=== PATIENT | male | born 1945 | race Caucasian/White ===

== ENCOUNTER 2016-07-09 12:17 | Emergency (ER) | payer MEDICARE ==
--- NOTE | 2016-07-09 12:30 | ER Document Report ---
ED Medical Screen (RME) - General Chief Complaint: Testicular Pain Stated Complaint: TESTICULAR PAIN/SWELLING Time seen by provider: 12:28 Mode of Arrival: Wheelchair Information source: Patient Notes: 70 yo male testicular pain for 2-3 days with swelling to the right scrotum.. TRAVEL OUTSIDE OF THE [place] IN LAST 30 DAYS: No - HPI Onset: Other - 3 days Onset/Duration: Gradual Quality of pain: Pressure Severity: Mild Pain Level: 2 Associated Symptoms: Other - testicular pain Exacerbated by: Sitting, Movement Relieved by: Denies Similar symptoms previously: Yes Recently seen / treated by doctor: No - Related Data Smoking: Non-smoker Frequency of alcohol use: None Drug Abuse: None Allergies/Adverse Reactions: Tetanus Vaccines and Toxoid [Tetanus] Allergy (Unknown, Verified 02/26/12 10:05) Past Medical History - Past Medical History Cardiac Medical History: Reports: Hx Hypertension - medicaitons Denies: Hx Heart Attack Pulmonary Medical History: Denies: Hx Asthma Neurological Medical History: Denies: Hx Cerebrovascular Accident, Hx Seizures GI Medical History: Reports: Hx Ulcer - scar tissue formd after surg. Denies: Hx Hepatitis, Hx Hiatal Hernia Infectious Medical History: Denies: Hx Hepatitis Past Surgical History: Denies: Hx Open Heart Surgery, Hx Pacemaker Physical Exam - Vital signs Vitals: Temp Pulse Resp BP Pulse Ox 97.8 F 121 H 20 129/74 H 97 07/09/16 12:24 07/09/16 12:24 07/09/16 12:24 07/09/16 12:24 07/09/16 12:24 Course - Vital Signs Vital signs: Temp Pulse Resp BP Pulse Ox 97.8 F 121 H 20 129/74 H 97 07/09/16 12:24 07/09/16 12:24 07/09/16 12:24 07/09/16 12:24 07/09/16 12:24
[2016-07-09] MEDS ORDERED: OXYCODONE-ACETAMINOPHEN 5-325 MG TABLET PO ONE (12:31)
[2016-07-09] MEDS ORDERED: ONDANSETRON HCL INJ/PF 4 MG/2 ML SDV IV ONE (12:54)
[2016-07-09] MEDS ORDERED: NORMAL SALINE 1000 ML 1,000 ML IV ONE (12:54)
[2016-07-09] MEDS ORDERED: MORPHINE SULFATE 10 MG/ML INJ IV ONE (12:54)
[2016-07-09 14:02] LABS: ABSOLUTE LYMPHOCYTES (AUTO) 1.1 10^3/uL (0.5-4.7); BASOPHILS % (AUTO) 0.4 % (0-2); EOSINOPHILS % (AUTO) 0.4 % (0-6); HEMATOCRIT 41.6 % (37.9-51.0); HEMOGLOBIN 14.1 g/dL (13.5-17.0); HGB HCT DIFFERENCE 0.7; LYMPHOCYTES % (AUTO) 10.8 % (13-45); MEAN CORPUSCULAR HEMOGLOBIN 30.6 pg (27.0-33.4); MEAN CORPUSCULAR VOLUME 90 fl (80-97); MONOCYTES % (AUTO) 9.7 % (3-13); RED BLOOD COUNT 4.62 10^6/uL (4.35-5.55); SEGMENTED NEUTROPHILS % (AUTO) 78.7 % (42-78); WHITE BLOOD COUNT 10.2 10^3/uL (4.0-10.5)
[2016-07-09 14:07] LABS: APPEARANCE,URINE CLOUDY; BILIRUBIN,URINE NEGATIVE (NEGATIVE); GLUCOSE, URINE NEGATIVE (NEGATIVE); KETONES,URINE NEGATIVE (NEGATIVE); LEUKOCYTE ESTERASE,URINE LARGE (NEGATIVE); NITRITE,URINE POSITIVE (NEGATIVE); PROTEIN,URINE 30 mg/dL (NEGATIVE); URINE SPECIFIC GRAVITY 1.021
[2016-07-09] MEDS ORDERED: DOXYCYCLINE HYCLATE INJ 100 MG VIAL IV ONE (14:08)
[2016-07-09 14:22] LABS: ANION GAP 12 (5-19); BLOOD UREA NITROGEN 23 mg/dL (7-20); CARBON DIOXIDE 26 mmol/L (22-30); CHLORIDE 102 mmol/L (98-107); CREATININE RESULT 1.16 mg/dL (0.52-1.25); GLUCOSE 105 mg/dL (75-110); POTASSIUM 3.8 mmol/L (3.6-5.0); SODIUM 139.5 mmol/L (137-145)
[2016-07-09] MEDS ORDERED: LEVOFLOXACIN 750 MG TABLET PO ONE (14:59)
--- NOTE | 2016-07-09 14:59 | ER Document Report ---
ED General - General Chief Complaint: Testicular Pain Stated Complaint: TESTICULAR PAIN/SWELLING Mode of Arrival: Wheelchair TRAVEL OUTSIDE OF THE [place] IN LAST 30 DAYS: No - HPI Patient complains to provider of: right testicle pain Notes: Patient coming in for a three-day history of right testicle pain swelling. Patient states no trauma to the area states similar to when he had a hernia on the right side that needed to be repaired. Last fevers chills dysuria. - Related Data Allergies/Adverse Reactions: Tetanus Vaccines and Toxoid [Tetanus] Allergy (Unknown, Verified 02/26/12 10:05) Past Medical History - General Information source: Patient - Social History Smoking Status: Never Smoker Frequency of alcohol use: None Drug Abuse: None Family History: None Patient has suicidal ideation: No Patient has homicidal ideation: No - Past Medical History Cardiac Medical History: Reports: Hx Hypertension - medicaitons Denies: Hx Heart Attack Pulmonary Medical History: Denies: Hx Asthma Neurological Medical History: Denies: Hx Cerebrovascular Accident, Hx Seizures GI Medical History: Reports: Hx Ulcer - scar tissue formd after surg. Denies: Hx Hepatitis, Hx Hiatal Hernia Infectious Medical History: Denies: Hx Hepatitis Past Surgical History: Denies: Hx Open Heart Surgery, Hx Pacemaker Review of Systems - Review of Systems Constitutional: No symptoms reported EENT: No symptoms reported Cardiovascular: No symptoms reported Respiratory: No symptoms reported Gastrointestinal: No symptoms reported Genitourinary: Other - Testicle pain Male Genitourinary: No symptoms reported Musculoskeletal: No symptoms reported Skin: No symptoms reported Hematologic/Lymphatic: No symptoms reported Neurological/Psychological: No symptoms reported Physical Exam - Vital signs Vitals: Temp Pulse Resp BP Pulse Ox 97.8 F 121 H 20 129/74 H 97 07/09/16 12:24 07/09/16 12:24 07/09/16 12:24 07/09/16 12:24 07/09/16 12:24 Interpretation: Normal - General General appearance: Appears well, Alert - HEENT Head: Normocephalic, Atraumatic Eyes: Normal Pupils: PERRL - Respiratory Respiratory status: No respiratory distress Chest status: Nontender Breath sounds: Normal Chest palpation: Normal - Cardiovascular Rhythm: Regular Heart sounds: Normal auscultation Murmur: No - Abdominal Inspection: Normal Distension: No distension Bowel sounds: Normal Tenderness: Nontender Organomegaly: No organomegaly - Genitourinary Inspection: Other - Patient's right testicle is greatly enlarged compared to the left. It is difficult to ascertain any cremaster reflex however the lie of the testicle does not look consistent with a torsion. Patient does have increased pain with elevation of the testicle. There is no erythema of the scrotum suggestive of cellulitic process or one Megan's gangrene - Back Back: Normal, Nontender - Extremities General upper extremity: Normal inspection, Nontender, Normal color, Normal ROM , Normal temperature General lower extremity: Normal inspection, Nontender, Normal color, Normal ROM , Normal temperature, Normal weight bearing. No: Shari's sign - Neurological Neuro grossly intact: Yes Cognition: Normal Orientation: AAOx4 [place] Coma Scale Eye Opening: Spontaneous Agustín Coma Scale Verbal: Oriented [place] Coma Scale Motor: Obeys Commands Agustín Coma Scale Total: 15 Speech: Normal Motor strength normal: LUE, RUE, LLE, RLE Sensory: Normal - Psychological Associated symptoms: Normal affect, Normal mood - Skin Skin Temperature: Warm Skin Moisture: Dry Skin Color: Normal Course - Re-evaluation Re-evalutation: 07/09/16 16:23 Ultrasound showed no signs of hernia did show signs of epididymitis. Patient does have a severely infected urine. Initially was going to give the patient IV doxycycline however patient stated he needed to leave therefore patient was switched to oral Levaquin given a dose here. Patient also while waiting for the ultrasound was drinking oral contrast encased in need of a CT scan for evaluation of hernia arises. However we were able to cancel the CAT scan. Patient will be given pain medications and antibiotics and will be discharged home - Vital Signs Vital signs: Temp Pulse Resp BP Pulse Ox 97.7 F 100 20 152/79 H 98 07/09/16 15:10 07/09/16 15:10 07/09/16 15:10 07/09/16 15:10 07/09/16 15:10 - Laboratory Result Diagrams: 07/09/16 13:52 07/09/16 13:52 Laboratory results interpreted by me: 07/09/16 07/09/16 07/09/16 13:52 13:52 13:52 Seg Neutrophils % 78.7 H Lymphocytes % 10.8 L BUN 23 H Urine Protein 30 H Urine Blood LARGE H Urine Nitrite POSITIVE H Urine Urobilinogen 2.0 H Ur Leukocyte Esterase LARGE H Discharge - Discharge Clinical Impression: Epididymitis Urinary tract infection Qualifiers: Urinary tract infection type: site unspecified Hematuria presence: with hematuria Qualified Code(s): N39.0 - Urinary tract infection, site not specified Condition: Good Disposition: HOME, SELF-CARE Instructions: Urinary Tract Infection ([facility]), Epididymitis ([facility]), Levofloxacin, Oral Narcotic Medication ([facility]) Additional Instructions: Take medication as prescribed. If you're taking the pain medication please be aware this may make you constipated. Return to the ER symptoms worsen. Please follow-up with your primary care physician within one week. Prescriptions: Levofloxacin [Levaquin] 500 mg PO DAILY #9 tablet Metoclopramide HCl [Reglan] 5 mg PO Q6 #20 tablet Oxycodone HCl 5 mg PO Q6 #20 tablet Sennosides/Docusate Sodium [Sennalax-S Tablet] 1 each PO BID #20 tablet
[2016-07-09 15:18] VITALS: BP 152/79
== END 2016-07-09 15:18 | disposition home or self-care (01) ==
LOC: ER 12:17
DX: N45.1 Epididymitis (principal); N39.0 Urinary tract infection, site not specified; N50.811 Right testicular pain
CPT/HCPCS: 99284; 96361; 96374; 96375; 36415; 87086; 85025; 87088; 80048; 81001; 87186; 76870; 93976; J2270; A9270 ×2; J2405; J7030